=== PATIENT | female | born 1995 | race Caucasian/White ===

== ENCOUNTER 2017-10-14 14:22 | Emergency (ER) ==
[2017-10-14 14:27] VITALS: BP 119/74; TEMP 98.6; BMI 18.3
[2017-10-14 15:07] LABS: BASOPHILS % (AUTO) 0.4 % (0.0-3.0); EOSINOPHILS # (AUTO) 0.1 K/ul (0.0-0.7); EOSINOPHILS % (AUTO) 1.8 % (0.0-7.0); HEMATOCRIT 40.3 % (37.0-47.0); HEMOGLOBIN 13.8 g/dl (12.0-16.0); IMMATURE GRANULOCYTE % (AUTO) 0.2 % (0.0-5.0); LYMPHOCYTES # (AUTO) 1.4 K/uL (0.60-3.4); LYMPHOCYTES % (AUTO) 24.4 (10.0-50.0); MEAN CORPUSCULAR HEMOGLOBIN 32.9 pg (27.0-31.0); MEAN CORPUSCULAR HGB CONC 34.2 (31.8-35.4); MONOCYTES # (AUTO) 0.4 K/uL (0.4-2.0); MONOCYTES % (AUTO) 7.7 (0-10); NEUTROPHILS # (AUTO) 3.7 K/ul (2.0-6.9); NEUTROPHILS % (AUTO) 65.5; PLATELET COUNT 193 10^3/uL (140-440); WHITE BLOOD COUNT 5.61 K/ul (4.6-10.2)
[2017-10-14 15:28] LABS: URINE PREGNANCY INTERNAL QC INTERNAL QC VALID
[2017-10-14 15:35] LABS: COCAIN SCREEN,URINE NEGATIVE (NEGATIVE)
[2017-10-14 15:48] LABS: ALBUMIN 4.3 g/dL (3.7-5.6); ALBUMIN/GLOBULIN RATIO 1.39; ANION GAP 10.3; BILIRUBIN,TOTAL 0.61 mg/dL (0.60-1.40); BUN/CREATININE RATIO 12.82; CALCIUM 9.2 mg/dL (8.2-10.2); CREATININE 0.78 mg/dL (0.60-1.30); POTASSIUM 3.3 mmol/L (3.5-5.10); TOTAL PROTEIN 7.4 g/dL (6.4-8.2)
--- NOTE | 2017-10-14 16:21 | ED.PDOC ---
General ED Provider: Dr. FRANCISCO JAVIER HOPPER Chief Complaint: Syncope Stated Complaint: syncope Time Seen by Physician: 14:22 Mode of Arrival: Walk-In Information Source: Patient Exam Limitations: No limitations Primary Care Provider: AD BOSTON Nursing and Triage Documentation Reviewed and Agree: Yes (syncope x 3 today) Neurological Complaint Exam - Syncope/Near Syncope Complaint/Exam Onset/Duration: today Symptoms Are: Resolved Episodes Lasting: Seconds Number of Episodes: 3x Episodes Witnessed: No Loss of Consciousness: No Associated Head Trauma: No Activity at Onset: At rest Aggravating: None Alleviating: Reports: None Associated Signs and Symptoms: Denies: Pain, Decreased oral intake, Vomiting, Diarrhea, GI blood loss, Short of air, Chest pain, Palpitations, Diaphoresis, Lightheadedness, Dizziness, Weakness, AMS, Numbness, Headache, Seizure, Remote head trauma, Recent head trauma Cardiac Risk Factors: Reports: None GI Bleed Risk Factors: Reports: None Dysrhythmia Risk Factors: Reports: None Related Surgical History: Reports: None JVD Present: No Carotid Bruit Present: No Rectal Heme Positive: No Glascow Coma Scale (see protocol): 15 Nystagmus Present: No Gag Reflex Present: No Focal Weakness: Present: None Focal Sensory Loss: Present: None Gait: Normal Review of Systems - Review Of Systems Constitutional: Reports: No symptoms Eyes: Reports: No symptoms Ears, Nose, Mouth, Throat: Reports: No symptoms Respiratory: Reports: No symptoms Cardiac: Reports: Syncope GI: Reports: No symptoms : Reports: No symptoms Musculoskeletal: Reports: No symptoms Skin: Reports: No symptoms Neurological: Reports: No symptoms Endocrine: Reports: No symptoms Hematologic/Lymphatic: Reports: No symptoms All Other Systems: Reviewed and Negative Past Medical History - Past Medical History Previously Healthy: Yes Endocrine: Reports: None Cardiovascular: Reports: None Respiratory: Reports: None Hematological: Reports: None Gastrointestinal: Reports: None Genitourinary: Reports: None Neuro/Psych: Reports: None Musculoskeletal: Reports: None Cancer: Reports: None Last Menstrual Period: irregular - Surgical History General Surgical History: Reports: None - Family History Family History: Reports: None - Social History Smoking Status: Never smoker Hx Substance Use: No Alcohol Screening: None - Immunizations Tetanus Shot up to Date: Yes Physical Exam - Physical Exam Appearance: Well-appearing, No pain distress, Well-nourished Eyes: LISA, EOMI, Conjunctiva clear ENT: Ears normal, Nose normal, Oropharynx normal Respiratory: Airway patent, Breath sounds clear, Breath sounds equal, Respirations nonlabored Cardiovascular: RRR, Pulses normal, No rub, No murmur GI/: Soft, Nontender, No masses, Bowel sounds normal, No Organomegaly Musculoskeletal: Normal strength, ROM intact, No edema, No calf tenderness Skin: Warm, Dry, Normal color Neurological: Sensation intact, Motor intact, Reflexes intact, Cranial nerves intact, Alert, Oriented Psychiatric: Affect appropriate, Mood appropriate Physician Notification - Case Discussed Physician Notified: pmd Time of Notification: 16:21 Critical Care Note - Critical Care Note Total Time (mins): 0 Course - Course Hematology/Chemistry: 10/14/17 15:00 10/14/17 15:00 Orders, Labs, Meds: Lab Review 10/14/17 10/14/17 10/14/17 15:00 15:00 15:22 WBC 5.61 RBC 4.20 Hgb 13.8 Hct 40.3 MCV 96.0 MCH 32.9 H MCHC 34.2 RDW Coeff of Emeka 11.9 Plt Count 193 Immature Gran % (Auto) 0.2 Neut % (Auto) 65.5 Lymph % (Auto) 24.4 Hanson % (Auto) 7.7 Eos % (Auto) 1.8 Baso % (Auto) 0.4 Immature Gran # (Auto) 0.0 Neut # 3.7 Lymph # 1.4 Hanson # 0.4 Eos # 0.1 Baso # 0.0 Sodium 142 Potassium 3.3 L Chloride 108 H Carbon Dioxide 27 Anion Gap 10.3 BUN 10 Creatinine 0.78 Estimated GFR (MDRD) 95.00 BUN/Creatinine Ratio 12.82 Glucose 81 Calcium 9.2 Total Bilirubin 0.61 AST 15 ALT 11 L Alkaline Phosphatase 55 Total Protein 7.4 Albumin 4.3 Globulin 3.1 Albumin/Globulin Ratio 1.39 TSH 0.965 Free T4 0.84 Urine Test Urine Opiates Screen Negative Ur Oxycodone Screen Negative Urine Methadone Screen Negative Ur Propoxyphene Screen Negative Ur Barbiturates Screen Negative U Tricyclic Antidepress Negative Ur Phencyclidine Scrn Negative Ur Amphetamine Screen Negative U Methamphetamines Scrn Negative U Benzodiazepines Scrn Negative Urine Cocaine Screen Negative U Cannabinoids Screen Negative 10/14/17 15:22 WBC RBC Hgb Hct MCV MCH MCHC RDW Coeff of Emeka Plt Count Immature Gran % (Auto) Neut % (Auto) Lymph % (Auto) Hanson % (Auto) Eos % (Auto) Baso % (Auto) Immature Gran # (Auto) Neut # Lymph # Hanson # Eos # Baso # Sodium Potassium Chloride Carbon Dioxide Anion Gap BUN Creatinine Estimated GFR (MDRD) BUN/Creatinine Ratio Glucose Calcium Total Bilirubin AST ALT Alkaline Phosphatase Total Protein Albumin Globulin Albumin/Globulin Ratio TSH Free T4 Urine Test Negative Urine Opiates Screen Ur Oxycodone Screen Urine Methadone Screen Ur Propoxyphene Screen Ur Barbiturates Screen U Tricyclic Antidepress Ur Phencyclidine Scrn Ur Amphetamine Screen U Methamphetamines Scrn U Benzodiazepines Scrn Urine Cocaine Screen U Cannabinoids Screen Orders Category Date Time Status EKG-(ED ONLY) Stat CARDIO 10/14/17 14:50 Completed CBC W/ AUTO DIFF Stat LAB 10/14/17 15:00 Completed COMPREHENSIVE METABOLIC PANEL Stat LAB 10/14/17 15:00 Completed FREE T4 (FREE THYROXINE) Stat LAB 10/14/17 15:00 Completed THYROID STIMULATING HORMONE Stat LAB 10/14/17 15:00 Completed URINE DRUG SCREEN (RAPID FOR ED) [DRUG SCREEN, URINE, LAB 10/14/17 15:22 Completed RAPID] Stat URINE Stat LAB 10/14/17 15:[address] HEAD W/O CONTRAST Stat RADS 10/14/17 14:59 Taken Vital Signs: Temp Pulse Resp BP Pulse Ox 10/14/17 14:22 98.6 F 99 H 16 119/74 97 Departure - Departure Time of Disposition: 17:00 (NO CUTE EVENT AT [facility] ) Disposition: HOME SELF-CARE Discharge Problem: Syncope Instructions: Syncope (ED) Condition: Good Pt referred to PMD for follow-up: Yes Additional Instructions: Please call your Family Physician as soon as possible to schedule a follow-up appointment.your doctor wants to see you in AM Allergies/Adverse Reactions: Allergies No Known Allergies Allergy (Verified 10/14/17 14:27) Home Medications: Ambulatory Orders 1 [No Reported Medications] 10/14/17
--- NOTE | 2017-10-15 06:59 | CT ---
EXAM: CT head without contrast. HISTORY: Syncope. Headache. COMPARISON: None available. TECHNIQUE: Multiple axial images of the brain were obtained from the skull base through the vertex w ithout intravenous contrast. Multiplanar reformats were provided. FINDINGS: There is no intracranial hemorrhage or extraaxial collection. The price-white differentiat ion is maintained without evidence for acute large vascular territory infarction. The cortical sulci and basal cisterns are well visualized. There is no hydrocephalus, mass effect, or midline shift. There is complete opacification of the right sphenoid sinus and the visualized portions of the left m axillary sinus but otherwise, the paranasal sinuses and mastoid air cells are clear. The calvarium i s intact. IMPRESSION: 1. No acute intracranial abnormality. 2. Right sphenoid and left maxillary sinusitis.
--- NOTE | 2017-10-17 08:01 | HOLTER ---
PATIENT INFORMATION AND COMMENTS Attending Physician: AD BOSTON Indications: SYNCOPE __ Patient Medications: FLUOXETINE 20 MG __ Pre-procedure Summary: Protocol: Standard Heart Rate Started: 10/14/171650 Minimum: 56 BPM Weight: 100 LBS Ended: 10/15/171650 Maximum: 168 BPM Height: 62" Duration: 24 HOURS Average: 91 BPM _ INTERPRETATIONS/OBSERVATIONS: 1. BASIC RHYTHM, SINUS RATE 56 BPM TO 150 BPM, AVERAGE 90 BPM, SINUS ARRHYTHMIA NOTED 2. INFREQUENT PAC'S AND PVC'S 3. NO ST-T WAVE CHANGES FROM BASELINE 4. ACTIVITY LOG NOT AVAILABLE MTDD
== END 2017-10-14 16:48 | disposition home or self-care (01) ==
LOC: ED 14:22
DX: R55 Syncope and collapse (principal)
CPT/HCPCS: 36415; 80053; 80306; 81025; 84439; 84443; 85025; 93005; 93010; 99283

== ENCOUNTER 2017-12-25 19:47 | Outpatient (CLI) | END 2017-12-25 19:48 | disposition home or self-care (01) | LOC: LAB 19:47 | PROVIDERS: ATTEND Nurse Practitioner Family | DX: R50.9 Fever, unspecified (principal) | CPT/HCPCS: 87502; 87651 ==